=== PATIENT | male | born 1950 | race Caucasian/White ===

== ENCOUNTER 2020-07-29 06:23 | Day surgery (SDC) | payer OTHER, SELFPAY ==
[2020-07-25 09:45] LABS: BASOPHILS % (AUTO) 0.4 % (0.0-2.0); EOSINOPHILS # (AUTO) 0.3 K/uL (0.0-0.4); EOSINOPHILS % (AUTO) 3.6 % (0.0-4.0); HEMOGLOBIN 13.6 g/dL (14.0-18.0); LYMPHOCYTES # (AUTO) 1.8 K/uL (1.0-5.5); MEAN CORPUSCULAR HEMOGLOBIN 31 pg (27-31); MEAN CORPUSCULAR HGB CONC 34 % (32-36); MEAN CORPUSCULAR VOLUME 91 fL (79.0-98.0); MONOCYTES # (AUTO) 0.8 K/uL (0.0-1.0); MONOCYTES % (AUTO) 10.1 % (1.7-9.3); NEUTROPHILS # (AUTO) 5.3 K/uL (1.8-7.7); NEUTROPHILS % (AUTO) 63.9 % (40.0-70.0); PLATELET COUNT (AUTO) 249 K/uL (130-430); RED CELL DISTRIBUTION WIDTH 13.8 % (9.0-15.0); WHITE BLOOD COUNT (AUTO) 8.3 K/uL (4.8-10.8)
[2020-07-25 09:53] LABS: BILIRUBIN,URINE NEGATIVE (NEGATIVE); BLOOD, URINE NEGATIVE (NEGATIVE); CLARITY/URINE CLEAR (CLEAR); COLOR,URINE YELLOW (YELLOW); GLUCOSE,URINE NEGATIVE (NEGATIVE); KETONES,URINE NEGATIVE (NEGATIVE); LEUKOCYTE ESTERASE ,URINE NEGATIVE (NEGATIVE); NITRITE, URINE NEGATIVE (NEGATIVE); PH,URINE 5.5 (5.0-8.0); PROTEIN URINE NEGATIVE (NEGATIVE); UROBILINOGEN,URINE 0.2 (0.2-1.0)
[2020-07-25 10:00] LABS: ANION GAP 12 (5-15); CALCIUM 8.8 mg/dL (8.4-11.0); CHLORIDE 106 mmol/L (98-107); GLUCOSE 99 mg/dL (70-99); POTASSIUM 3.9 mmol/L (3.5-5.1); SODIUM SERUM 142 mmol/L (136-145); UREA NITROGEN, BLOOD 16 mg/dL (8-21)
[2020-07-25 10:04] LABS: INR 0.9 (0.80-1.20); PROTHROMBIN TIME 9.5 SECS (9.5-12.5)
[~2020-07-29] VITALS: Ht 182.9 cm; Wt 88.9 kg
[2020-07-29] MEDS ORDERED: DEXAMETHASONE SOD PHOSPHATE 4 MG/ML VIAL IVP ONE (09:09)
[2020-07-29] MEDS ORDERED: ePHEDrine sulfate 50 MG/ML VIAL IVP ONE (09:09)
[2020-07-29] MEDS ORDERED: NS IRRIG SOLN 5000 ML IR ONE (09:09)
[2020-07-29] MEDS ORDERED: ROCURONIUM BROMIDE 10 MG/ML (ZEMURON) IV ONE (09:09)
[2020-07-29] MEDS ORDERED: MORPHINE SULFATE 10 MG/ML VIAL IVP ONE (09:09)
[2020-07-29] MEDS ORDERED: CEFAZOLIN 2 GM IVPB PREMIX 50 ML IV ONE (09:09)
[2020-07-29] MEDS ORDERED: LR 1,000 ML IV.SOLN IV ONE (09:09)
[2020-07-29] MEDS ORDERED: ETOMIDATE 20 MG/ 10 ML VIAL (AMIDATE) IVP ONE (09:09)
[2020-07-29] MEDS ORDERED: ACETAMINOPHEN I.V. 1000 MG 100 ML IV ONE (10:59)
[2020-07-29] MEDS ORDERED: LR 1,000 ML IV SCH (11:45)
[2020-07-29] MEDS ORDERED: ONDANSETRON HCL 4 MG/2 ML VIAL IVP PRN (11:45)
[2020-07-29] MEDS ORDERED: HYDROmorphone 1 MG/ML INJ. CARTRIDGE ONE (11:59)
[2020-07-29] MEDS ORDERED: HYDROmorphone 1 MG/ML INJ. CARTRIDGE IV ONE (12:00)
[2020-07-29] MEDS ORDERED: hydrALAZINE HCL 20 MG/ML VIAL IV PRN (12:00)
[2020-07-29] MEDS ORDERED: HYDROcodone/ACETAMIN 5-325 MG TAB (NORCO/ VICODIN) ONE (12:54)
[2020-07-29] MEDS ORDERED: HYDROcodone/ACETAMIN 5-325 MG TAB (NORCO/ VICODIN) PO PRN (13:00)
[2020-07-29] MEDS ORDERED: ONDANSETRON HCL 4 MG/2 ML VIAL ONE (13:03)
[2020-07-29] MEDS ORDERED: METOCLOPRAMIDE HCL 10 MG/2 ML VIAL ONE (14:10)
[2020-07-29] MEDS ORDERED: METOCLOPRAMIDE HCL 10 MG/2 ML VIAL IVP ONE (14:15)
[2020-07-29 16:07] VITALS: BP_SYST 150
== END 2020-07-29 14:30 | disposition home or self-care (01) ==
LOC: SDS 06:23 → SMU 06:23 → SDS 14:30
PROVIDERS: ATTEND Orthopaedic Surgery
DX: M75.101 Unspecified rotator cuff tear or rupture of right shoulder, not specified as traumatic (principal); M66.821 Spontaneous rupture of other tendons, right upper arm; Z20.822 Contact with and (suspected) exposure to COVID-19; Z79.01 Long term (current) use of anticoagulants; Z79.899 Other long term (current) drug therapy
CPT/HCPCS: 23412; 29822; 36415; 71046; 80048; 81003; 85025; 85610; 85730; 93005; J0131; J0690; J1100; J1170; J2270; J2405; J2765; J3490; J7120; L3650; U0003

== ENCOUNTER 2021-07-21 07:12 | Day surgery (SDC) | payer OTHER ==
[2021-07-20 08:41] LABS: BILIRUBIN,URINE NEGATIVE (NEGATIVE); CLARITY/URINE CLEAR (CLEAR); COLOR,URINE YELLOW (YELLOW); GLUCOSE,URINE NEGATIVE (NEGATIVE); KETONES,URINE NEGATIVE (NEGATIVE); LEUKOCYTE ESTERASE ,URINE NEGATIVE (NEGATIVE); NITRITE, URINE NEGATIVE (NEGATIVE); PROTEIN URINE NEGATIVE (NEGATIVE); UROBILINOGEN,URINE 0.2 (0.2-1.0)
[2021-07-20 08:47] LABS: BLOOD, URINE TRACE (NEGATIVE)
[2021-07-20 09:11] LABS: BASOPHILS % (AUTO) 0.3 % (0.0-2.0); EOSINOPHILS # (AUTO) 0.2 K/uL (0.0-0.4); HEMATOCRIT 42.7 % (36-54); HEMOGLOBIN 14.5 g/dL (14.0-18.0); LYMPHOCYTES # (AUTO) 1.8 K/uL (1.0-5.5); LYMPHOCYTES % (AUTO) 26.6 % (20.5-51.5); MEAN CORPUSCULAR HEMOGLOBIN 30 pg (27-31); MEAN CORPUSCULAR HGB CONC 34 % (32-36); MEAN CORPUSCULAR VOLUME 87 fL (79.0-98.0); MONOCYTES # (AUTO) 0.7 K/uL (0.0-1.0); MONOCYTES % (AUTO) 9.8 % (1.7-9.3); NEUTROPHILS # (AUTO) 4.2 K/uL (1.8-7.7); NEUTROPHILS % (AUTO) 60.3 % (40.0-70.0); PLATELET COUNT (AUTO) 196 K/uL (130-430); RED CELL DISTRIBUTION WIDTH 13.9 % (9.0-15.0); WHITE BLOOD COUNT (AUTO) 6.9 K/uL (4.8-10.8)
[2021-07-20 09:25] LABS: INR 0.9 (0.80-1.20); PROTHROMBIN TIME 9.7 SECS (9.5-12.5)
[2021-07-20 09:49] LABS: ANION GAP 8 (5-15); CALCIUM 8.5 mg/dL (8.4-11.0); CHLORIDE 104 mmol/L (98-107); GLUCOSE 103 mg/dL (70-99); POTASSIUM 3.9 mmol/L (3.5-5.1); SODIUM SERUM 139 mmol/L (136-145); UREA NITROGEN, BLOOD 17 mg/dL (8-21)
[2021-07-20 10:56] LABS: BACTERIA,URINE FEW /HPF (None Seen); WBC,URINE 0-3 /HPF (0-3)
[~2021-07-21] VITALS: Ht 208.3 cm; Wt 89.4 kg
[2021-07-21] MEDS ORDERED: LR 1,000 ML IV.SOLN IV ONE (10:21)
[2021-07-21] MEDS ORDERED: KETOROLAC TROMETHAMINE 30 MG VIAL IVP ONE (10:21)
[2021-07-21] MEDS ORDERED: SUGAMMADEX SODIUM 200 MG/2 ML VIAL IV ONE (10:21)
[2021-07-21] MEDS ORDERED: DESFLURANE 15 MIN GAS INH ONE (10:21)
[2021-07-21] MEDS ORDERED: BUPIVACAINE /PF 0.25% 10 ML VIAL INJ ONE (10:21)
[2021-07-21] MEDS ORDERED: LIDOCAINE 2%, 20 ML MDV INJ ONE (10:21)
[2021-07-21] MEDS ORDERED: ROCURONIUM BROMIDE 10 MG/ML (ZEMURON) IV ONE (10:21)
[2021-07-21] MEDS ORDERED: CEFAZOLIN 2 GM IVPB PREMIX 50 ML IV ONE (10:21)
[2021-07-21] MEDS ORDERED: MIDAZOLAM HCL 5 MG/5 ML VIAL IVP ONE (10:21)
[2021-07-21] MEDS ORDERED: DEXAMETHASONE SOD PHOSPHATE 4 MG/ML VIAL IVP ONE (10:21)
[2021-07-21] MEDS ORDERED: PROPOFOL 200MG/ 20ML VIAL (DIPRIVAN) IV ONE (10:21)
[2021-07-21] MEDS ORDERED: ONDANSETRON HCL 4 MG/2 ML VIAL IVP ONE (10:21)
[2021-07-21] MEDS ORDERED: WATER FOR IRRIGATION,STERILE 1,000 ML IRRIG.SOLN IR ONE (10:21)
[2021-07-21] MEDS ORDERED: fentaNYL CITRATE 250 MCG/5 ML AMP IV ONE (10:21)
[2021-07-21] MEDS ORDERED: METOCLOPRAMIDE HCL 10 MG/2 ML VIAL IVP PRN (10:45)
[2021-07-21] MEDS ORDERED: MIDAZOLAM HCL 2 MG/2 ML VIAL (VERSED) IVP PRN (10:45)
[2021-07-21] MEDS ORDERED: hydrALAZINE HCL 20 MG/ML VIAL IVP PRN (10:45)
[2021-07-21] MEDS ORDERED: HYDROmorphone 1 MG/ML INJ. CARTRIDGE IVP PRN ×2 (10:45)
[2021-07-21] MEDS ORDERED: LABETALOL 100 MG/ 20ML VIAL IVP PRN (10:45)
[2021-07-21] MEDS ORDERED: LR 1,000 ML IV SCH (10:45)
[2021-07-21] MEDS ORDERED: MEPERIDINE HCL/PF 25 MG/ML DISP.SYRIN IVP PRN (10:45)
[2021-07-21] MEDS ORDERED: ACETAMINOPHEN I.V. 1000 MG 100 ML IV ONE (11:29)
[2021-07-21 13:20] VITALS: BP_SYST 142
== END 2021-07-21 14:35 | disposition home or self-care (01) ==
LOC: SDS 07:12 → SMU 07:13 → SDS 14:35
PROVIDERS: ATTEND Orthopaedic Surgery
DX: M12.811 Other specific arthropathies, not elsewhere classified, right shoulder (principal); M75.21 Bicipital tendinitis, right shoulder; M25.511 Pain in right shoulder; R94.31 Abnormal electrocardiogram [ECG] [EKG]; Z79.01 Long term (current) use of anticoagulants; Z20.822 Contact with and (suspected) exposure to COVID-19
CPT/HCPCS: 23120; 23130; 36415; 64415; 71046; 76942; 80048; 81000; 85025; 85610; 85730; 87081; 88304; 88311; 93005; J0131; J0690; J1100; J1885; J2001; J2250; J2405; J2704; J3010; J3490 ×2; J7120; U0003

== ENCOUNTER 2021-10-06 06:43 | Day surgery (SDC) | payer OTHER ==
[2021-10-04 09:21] LABS: BASOPHILS # (AUTO) 0.1 K/uL (0.0-0.2); BASOPHILS % (AUTO) 0.6 % (0.0-2.0); EOSINOPHILS # (AUTO) 0.1 K/uL (0.0-0.4); EOSINOPHILS % (AUTO) 1.1 % (0.0-4.0); HEMATOCRIT 41.2 % (36-54); HEMOGLOBIN 14.1 g/dL (14.0-18.0); LYMPHOCYTES # (AUTO) 2.5 K/uL (1.0-5.5); LYMPHOCYTES % (AUTO) 19.7 % (20.5-51.5); MEAN CORPUSCULAR HEMOGLOBIN 30 pg (27-31); MEAN CORPUSCULAR HGB CONC 34 % (32-36); MEAN CORPUSCULAR VOLUME 87 fL (79.0-98.0); MONOCYTES # (AUTO) 1.2 K/uL (0.0-1.0); MONOCYTES % (AUTO) 9.6 % (1.7-9.3); NEUTROPHILS # (AUTO) 8.7 K/uL (1.8-7.7); PLATELET COUNT (AUTO) 404 K/uL (130-430); RED BLOOD CELL COUNT(AUTO) 4.71 MIL/uL (4.2-6.2); RED CELL DISTRIBUTION WIDTH 13.8 % (9.0-15.0); WHITE BLOOD COUNT (AUTO) 12.7 K/uL (4.8-10.8)
[2021-10-04 09:25] LABS: BILIRUBIN,URINE NEGATIVE (NEGATIVE); CLARITY/URINE CLEAR (CLEAR); COLOR,URINE YELLOW (YELLOW); GLUCOSE,URINE NEGATIVE (NEGATIVE); KETONES,URINE NEGATIVE (NEGATIVE); LEUKOCYTE ESTERASE ,URINE NEGATIVE (NEGATIVE); NITRITE, URINE NEGATIVE (NEGATIVE); PROTEIN URINE NEGATIVE (NEGATIVE); UROBILINOGEN,URINE 0.2 (0.2-1.0)
[2021-10-04 09:37] LABS: INR 0.9 (0.80-1.20); PROTHROMBIN TIME 9.8 SECS (9.5-12.5)
[2021-10-04 09:39] LABS: ALANINE AMINOTRANSFERASE 43 U/L (12-78); ALBUMIN 3.6 g/dL (3.4-4.8); ANION GAP 7 (5-15); ASPARTATE AMINOTRANSFERASE 19 U/L (10-37); CALCIUM 9.4 mg/dL (8.4-11.0); CHLORIDE 100 mmol/L (98-107); CREATININE 0.88 mg/dL (0.55-1.30); GLUCOSE 104 mg/dL (70-99); POTASSIUM 4.8 mmol/L (3.5-5.1); SODIUM SERUM 137 mmol/L (136-145); TOTAL BILIRUBIN 0.5 mg/dL (0.0-1.0); UREA NITROGEN, BLOOD 16 mg/dL (8-21)
[2021-10-04 09:44] LABS: BLOOD, URINE TRACE (NEGATIVE)
[2021-10-04 09:46] LABS: BACTERIA,URINE RARE /HPF (None Seen); MUCUS,URINE 1+ /LPF (None Seen); WBC,URINE 0-3 /HPF (0-3)
[~2021-10-06] VITALS: Ht 152.4 cm; Wt 52.6 kg
[2021-10-06] MEDS ORDERED: SEVOFLURANE 15 MIN GAS INH ONE (09:30)
[2021-10-06] MEDS ORDERED: PROPOFOL 200MG/ 20ML VIAL (DIPRIVAN) IV ONE (09:30)
[2021-10-06] MEDS ORDERED: CEFAZOLIN 2 GM IVPB PREMIX 50 ML IV ONE (09:30)
[2021-10-06] MEDS ORDERED: ONDANSETRON HCL 4 MG/2 ML VIAL ONE (09:30)
[2021-10-06] MEDS ORDERED: LR 1,000 ML IV.SOLN IV ONE (09:30)
[2021-10-06] MEDS ORDERED: KETOROLAC TROMETHAMINE 30 MG VIAL ONE (09:30)
[2021-10-06] MEDS ORDERED: MORPHINE 4 MG INJ. 4 MG/ML VIAL IVP PRN (10:15)
[2021-10-06] MEDS ORDERED: IBUPROFEN 600 MG TABLET PO ONE (10:15)
[2021-10-06] MEDS ORDERED: HYDROmorphone 1 MG/ML INJ. CARTRIDGE IVP PRN (10:15)
[2021-10-06] MEDS ORDERED: KETOROLAC TROMETHAMINE 30 MG VIAL IVP PRN (10:15)
[2021-10-06] MEDS ORDERED: ONDANSETRON HCL 4 MG/2 ML VIAL IVP PRN (10:15)
[2021-10-06] MEDS ORDERED: HYDROcodone/ACETAMIN 5-325 MG TAB (NORCO/ VICODIN) PO PRN (12:00)
[2021-10-06 12:42] VITALS: BP_SYST 137
== END 2021-10-06 12:35 | disposition home or self-care (01) ==
LOC: SMU 06:43 → SDS 06:43
PROVIDERS: ATTEND Orthopaedic Surgery
DX: L76.34 Postprocedural seroma of skin and subcutaneous tissue following other procedure (principal); I10 Essential (primary) hypertension; E78.5 Hyperlipidemia, unspecified; Z79.899 Other long term (current) drug therapy; Z20.822 Contact with and (suspected) exposure to COVID-19; Z79.01 Long term (current) use of anticoagulants
CPT/HCPCS: 80053; 81000; 85025; 85610; 85730; 36415 ×2; 93005; 71046; 10140; 87070; 87426; U0003; J0690; J1885; J2405; J2704; J7120

== ENCOUNTER 2021-10-12 09:47 | Inpatient (IN) | payer OTHER ==
[~2021-10-12] VITALS: Ht 182.9 cm; Wt 84.4 kg
[2021-10-12 10:20] VITALS: BP_SYST 122
[2021-10-12 10:42] VITALS: BP_SYST 122
[2021-10-12] MEDS ORDERED: LIP10 PO (10:54)
--- NOTE | 2021-10-12 11:00 | NUR ---
Admission Note Received patient from HOME VIA DIRECT ADMIT with diagnosis of RIGHT SHOULDER INFECTION. Initial Plan of Care discussed-patient verbalized understanding. Oriented to room, call light, pain management and safety. IV LINE ESTABLISHED. WILL CALL ADMITTING DOCTOR FOR ORDERS. PT IS STABLE, NO ACUTE DISTRESS, RIGHT SHOULDER PAIN WITH REDNESS, SWELLING, CASANDRA NOTED, BUT NO DRAINAGE. ASSUMING CARE FOR PT.
--- NOTE | 2021-10-12 11:35 | NUR ---
CALLED AND INFORMED DR MAJO THEODORE THAT PT IS ALREADY HERE. INFORMED AZAR BROWER.
--- NOTE | 2021-10-12 12:30 | NUR ---
DR. FORD HERE TO SEE THE PATIENT. PER PT WILL HAVE I/D TONIGHT.
[2021-10-12 13:00] VITALS: BP_SYST 145
[2021-10-12] MEDS ORDERED: ONDANSETRON HCL 4 MG/2 ML VIAL IVP PRN ×2 (13:15→17:30)
[2021-10-12] MEDS ORDERED: NALOXONE HCL 0.4 MG/ML AMP (NARCAN) IVP PRN ×3 (13:15→19:15)
[2021-10-12] MEDS ORDERED: HYDROmorphone 1 MG/ML INJ. CARTRIDGE IVP PRN ×3 (13:15→17:30)
[2021-10-12] MEDS: LR 1,000 ML IV SCH (13:15)
[2021-10-12 13:56] LABS: BASOPHILS # (AUTO) 0.1 K/uL (0.0-0.2); BASOPHILS % (AUTO) 0.5 % (0.0-2.0); EOSINOPHILS # (AUTO) 0.2 K/uL (0.0-0.4); EOSINOPHILS % (AUTO) 1.4 % (0.0-4.0); HEMATOCRIT 35.9 % (36-54); LYMPHOCYTES # (AUTO) 2.1 K/uL (1.0-5.5); MEAN CORPUSCULAR HEMOGLOBIN 29 pg (27-31); MEAN CORPUSCULAR HGB CONC 33 % (32-36); MEAN CORPUSCULAR VOLUME 87 fL (79.0-98.0); MONOCYTES # (AUTO) 0.9 K/uL (0.0-1.0); MONOCYTES % (AUTO) 8.5 % (1.7-9.3); NEUTROPHILS # (AUTO) 7.8 K/uL (1.8-7.7); NEUTROPHILS % (AUTO) 70.6 % (40.0-70.0); PLATELET COUNT (AUTO) 326 K/uL (130-430); RED CELL DISTRIBUTION WIDTH 13.8 % (9.0-15.0)
[2021-10-12 14:14] LABS: ANION GAP 7 (5-15); C-REACTIVE PROTEIN QUANT 7.2 mg/dL (0-0.5); CALCIUM 9.1 mg/dL (8.4-11.0); CHLORIDE 102 mmol/L (98-107); CREATININE 0.74 mg/dL (0.55-1.30); GLUCOSE 96 mg/dL (70-99); POTASSIUM 4.3 mmol/L (3.5-5.1); UREA NITROGEN, BLOOD 16 mg/dL (8-21)
[2021-10-12 15:30] VITALS: BP_SYST 145
--- NOTE | 2021-10-12 15:30 | NUR ---
PT OFF THE UNIT FOR I/D. PT STABLE AND PRE OP CHECKLIST DONE.
[2021-10-12 16:27] LABS: ERYTHROCYTE SEDIMENTATION RATE 75 MM/HR (0-15)
[2021-10-12] MEDS ORDERED: LR 1,000 ML IV SCH (17:30)
[2021-10-12] MEDS ORDERED: HYDROmorphone 2 MG/ML VIAL IVP PRN ×2 (17:30→19:15)
[2021-10-12] MEDS ORDERED: SEVOFLURANE 15 MIN GAS INH ONE (18:10)
[2021-10-12] MEDS ORDERED: ONDANSETRON HCL 4 MG/2 ML VIAL ONE ×2 (18:10→18:17)
[2021-10-12] MEDS ORDERED: NS IRRIG SOLN 1000 ML IR ONE (18:10)
[2021-10-12] MEDS ORDERED: GLYCOPYRROLATE 0.2 MG/ML VIAL ONE (18:10)
[2021-10-12] MEDS ORDERED: LR 1,000 ML IV.SOLN IV ONE (18:10)
[2021-10-12] MEDS ORDERED: CEFAZOLIN 2 GM IVPB PREMIX 50 ML IV ONE (18:10)
[2021-10-12] MEDS ORDERED: METOCLOPRAMIDE HCL 10 MG/2 ML VIAL ONE (18:10)
[2021-10-12] MEDS ORDERED: BUPIVACAINE /PF 0.25% 30 ML VIAL INJ ONE (18:10)
[2021-10-12] MEDS ORDERED: PROPOFOL 200MG/ 20ML VIAL (DIPRIVAN) IV ONE (18:10)
[2021-10-12] MEDS ORDERED: LIDOCAINE/EPI 1% 1:100000 20 ML VIAL ONE (18:10)
[2021-10-12] MEDS ORDERED: PHENYLEPHRINE HCL 10 MG/ML VIAL (NEOSYNEPHRINE) ONE (18:10)
[2021-10-12] MEDS ORDERED: fentaNYL CITRATE/PF 100 MCG/2 ML AMP ONE (18:10)
--- NOTE | 2021-10-12 18:45 | NUR ---
RECEIVED PT VIA BED. PT STABLE, INITIATED POST OP FREQUENT VS. WILL CLOSELY MONITOR PT.
[2021-10-12] MEDS ORDERED: HYDROcodone/ACETAMIN 5-325 MG TAB (NORCO/ VICODIN) PO PRN ×2 (19:15)
[2021-10-12] MEDS ORDERED: ONDANSETRON 4 MG ODT TAB PO PRN (19:15)
--- NOTE | 2021-10-12 19:30 | NUR ---
REPORT GIVEN TO AMADOU ASKEW. INFORMED FREQUENT VS NEEDS TO BE CONTINUED.
[2021-10-12 20:00] VITALS: BP_SYST 134
--- NOTE | 2021-10-12 20:00 | NUR ---
Received pt from outgoing nurse,fully alert oriented x 4. has IVF LR@ 75 ml/h he denies pain but offered snacks and oral drinks as requested. vitals done are within normal range
[2021-10-12] MEDS: CEFAZOLIN 1 GM IVPB PREMIX 50 ML IV SCH (21:05)
[2021-10-12] MEDS: DOCUSATE SODIUM 100 MG CAPSULE PO SCH (21:05)
[2021-10-12 21:24] VITALS: BP_SYST 155
--- NOTE | 2021-10-13 | NUR ---
vitals done are within normal limit
[2021-10-13 00:10] VITALS: BP_SYST 128
--- NOTE | 2021-10-13 01:10 | NUR ---
pt sleeping quietly.IVF in progress
[2021-10-13] MEDS: LR 1,000 ML IV SCH ×2 (02:35→15:55)
--- NOTE | 2021-10-13 04:00 | NUR ---
pt denies pain, not in distress, resting in bed
[2021-10-13 06:00] VITALS: BP_SYST 128
[2021-10-13] MEDS: CEFAZOLIN 1 GM IVPB PREMIX 50 ML IV SCH (06:16)
--- NOTE | 2021-10-13 07:07 | NUR ---
CONSULTATION PAGED/CALLED Reason for Consultation: [] R SHOULDER ABSCESS Person Who was Notified: [] ANTHONY Consulting Physician: [] DR LUNDBERG V Belt Inspector Specialty: [] ID Ordering Physician: [] DR Albaro FORD
[2021-10-13 08:18] VITALS: BP_SYST 140
[2021-10-13] MEDS: DOCUSATE SODIUM 100 MG CAPSULE PO SCH ×2 (08:46→20:14)
[2021-10-13] MEDS: ENOXAPARIN SODIUM 40 MG/0.4 ML SYRINGE SUBCUT SCH (08:46)
[2021-10-13] MEDS: VANCOMYCIN HCL 1,000 MG in NS 250 ML IV SCH ×2 (11:12→22:56)
[2021-10-13 11:35] VITALS: BP_SYST 129
[2021-10-13] MEDS: CLINDAMYCIN 600 MG in D5W 50 ML IV SCH ×2 (13:39→17:19)
--- NOTE | 2021-10-13 15:15 | NUR ---
0730 Pt. in bed, aaox4, no distress. Dressing to right shoulder noted, denies pain 1200 Pt. spoke with Infectious Disease doctor on phone, started on antibiotics ivpb 1300 Dr. Johnson at bedside, pt. to have repeat I&D tomorrow.
[2021-10-13 15:20] VITALS: BP_SYST 135
--- NOTE | 2021-10-13 18:48 | NUR ---
1830 Pt. needs met this shift, vss, afebrile, consent signed for repeat drainage and irrigation of right shoulder tomorrow, npo after midnight. Call light in reach, report given to noc shift.
[2021-10-13] MEDS: LACTOBACILLUS RHAMNOSUS GG 1 CAP CAPSULE PO SCH (20:14)
[2021-10-13 20:15] VITALS: BP_SYST 142
--- NOTE | 2021-10-13 20:23 | NUR ---
RECEIVED PT LYING IN BED, NO DISTRESS NOTED, C/O RT SHOULDER PAIN RATING IT 6/10 MEDICATED WITH NORCO 1 TAB. DRSG TO RT SHOULDER SMALL AMOUNT OF DRAINAGE NOTED. RUE WITH +WARMTH, +SENSATION, +MOBILITY, BRISK CAP REFILL, PALPABLE PULSE. ENCOURAGED TO US INCENTIVE SPIROMETER 1000ML. IV TO LT WRIST SITE CDI. Addendum: 10/13/21 at 2202 by [employer] AZAR Gleason RN 2199: REPORT GIVEN TO SASHA ASKEW
[2021-10-14] VITALS (7 sets, daily range): BP systolic 130–144
[2021-10-14] MEDS: CLINDAMYCIN 600 MG in D5W 50 ML IV SCH ×4 (00:07→17:02)
--- NOTE | 2021-10-14 07:18 | NUR ---
Report received from shift supervisor rn RN for continuity of care. Patient in stable condition. No distress noted.
[2021-10-14] MEDS: ENOXAPARIN SODIUM 40 MG/0.4 ML SYRINGE SUBCUT SCH (08:38)
[2021-10-14] MEDS: LACTOBACILLUS RHAMNOSUS GG 1 CAP CAPSULE PO SCH (08:38)
[2021-10-14] MEDS: DOCUSATE SODIUM 100 MG CAPSULE PO SCH (08:38)
--- NOTE | 2021-10-14 08:57 | NUR ---
Dietitian Recommendations: - NPO per MD order, resume a regular diet when appropriate - suggest daily multivitamin w/ minerals - when diet resumes, consider addition of Ensure Enlive BID, sip between meals - monitor weight trend Please refer to nutrition assessment for details. PS, RD
--- NOTE | 2021-10-14 11:16 | NUR ---
Dr. Noland notified regarding patient surgical delay. Dr. Noland spoke with patient on phone regarding situation.
[2021-10-14] MEDS ORDERED: ONDANSETRON HCL 4 MG/2 ML VIAL IVP PRN (11:30)
[2021-10-14] MEDS ORDERED: ATORVASTATIN 10 MG TABLET PO ONE (11:30)
[2021-10-14] MEDS: VANCOMYCIN HCL 1,000 MG in NS 250 ML IV SCH (11:32)
[2021-10-14] MEDS: LR 1,000 ML IV SCH (11:34)
--- NOTE | 2021-10-14 13:34 | NUR ---
OR called to take patient to preop soon.
[2021-10-14] MEDS ORDERED: LIDOCAINE/EPI 1% 1:100000 20 ML VIAL ONE (13:35)
[2021-10-14] MEDS ORDERED: PROPOFOL 200MG/ 20ML VIAL (DIPRIVAN) IV ONE (13:35)
[2021-10-14] MEDS ORDERED: BUPIVACAINE /PF 0.25% 10 ML VIAL INJ ONE (13:35)
[2021-10-14] MEDS ORDERED: SEVOFLURANE 15 MIN GAS INH ONE (13:35)
[2021-10-14] MEDS ORDERED: LR 1,000 ML IV.SOLN IV ONE (13:35)
[2021-10-14] MEDS ORDERED: NS IRRIG SOLN 1000 ML IR ONE (13:35)
[2021-10-14] MEDS ORDERED: MIDAZOLAM HCL 5 MG/5 ML VIAL ONE (13:35)
--- NOTE | 2021-10-14 15:13 | NUR ---
Patient coming back from OR.
--- NOTE | 2021-10-14 15:27 | NUR ---
Report received from AZAR Cosby for continuity of care. Patient vital signs stable. No distress noted. Patient is awake, alert, and oriented x4. Respiration even and unlabored. No c/o pain. Patient aware of procedure that was performed. Will continue to monitor. Call light within reach.
[2021-10-14] MEDS ORDERED: HYDR-3917 PO (17:11)
[2021-10-14] MEDS ORDERED: DOXY-244 PO (17:13)
--- NOTE | 2021-10-14 18:45 | NUR ---
Patient ready for discharge. All paperwork provided. Educated on medications and aftercare. No distress noted. Patient took all of his belongings. Ambulatory with steady gait to wheelchair. IV removed and area is clean, dry, and intact. Took patient via wheelchair to front of lobby where he was picked up by his son.
[2021-10-15] MEDS ORDERED: ATORVASTATIN 10 MG TABLET PO SCH (09:00)
--- NOTE | 2021-11-01 16:29 | NUR ---
Microarray Analyst ANGLE DOZER OPERATOR made a Post Discharge Follow Up Phone Call and spoke to former pt. Bryant who said he is making progress, saw Dr. Johnson 2 times, did have an infection, but the meds have cleared it up and stitches were removed today. Bryant did not have any questions or concerns. ANGLE DOZER OPERATOR thanked him for the update.
== END 2021-10-14 20:17 | disposition home or self-care (01) | DRG 603 ==
LOC: SMU 09:47
PROVIDERS: ADMIT Orthopaedic Surgery; ATTEND Orthopaedic Surgery
PROC: 0R9J3ZZ Drainage of Right Shoulder Joint, Percutaneous Approach (ICD-10-PCS; principal; 2021-10-12 17:01)
PROC: 0R9J3ZZ Drainage of Right Shoulder Joint, Percutaneous Approach (ICD-10-PCS; 2021-10-14)
DX: L02.413 Cutaneous abscess of right upper limb (principal); R65.10 Systemic inflammatory response syndrome (SIRS) of non-infectious origin without acute organ dysfunction; Z20.822 Contact with and (suspected) exposure to COVID-19
CPT/HCPCS: 36415; 80048; 85025; 85651-TC; 86140; 87070-TC; 87075-TC; 87081; 88305; J0690; J1170; J1650; J2250; J2370; J2405; J2704; J2765; J3010; J3370; J3490; J7050; J7060; J7120

== ENCOUNTER 2023-10-03 07:53 | Outpatient (CLI) | payer OTHER ==
[~2023-10-03 07:53] MED LIST: ATOR-449 PO; DOXY-244 PO; HYDR-3917 PO
== END 2023-10-03 18:06 | disposition home or self-care (01) ==
LOC: SCT 07:53
PROVIDERS: ATTEND Student in an Organized Health Care Education/Training Program
DX: M17.11 Unilateral primary osteoarthritis, right knee (principal)

== ENCOUNTER 2023-10-16 05:00 | Day surgery (SDC) | payer OTHER ==
[2023-10-08 10:51] LABS: BASOPHILS % (AUTO) 0.2 % (0.0-2.0); EOSINOPHILS # (AUTO) 0.5 K/uL (0.0-0.4); EOSINOPHILS % (AUTO) 5.9 % (0.0-4.0); HEMATOCRIT 39.6 % (36-54); HEMOGLOBIN 13.2 g/dL (14.0-18.0); LYMPHOCYTES # (AUTO) 2.2 K/uL (1.0-5.5); LYMPHOCYTES % (AUTO) 23.7 % (20.5-51.5); MEAN CORPUSCULAR HEMOGLOBIN 30 pg (27-31); MEAN CORPUSCULAR HGB CONC 33 % (32-36); MEAN CORPUSCULAR VOLUME 89 fL (79.0-98.0); MONOCYTES # (AUTO) 0.8 K/uL (0.0-1.0); MONOCYTES % (AUTO) 8.5 % (1.7-9.3); NEUTROPHILS # (AUTO) 5.7 K/uL (1.8-7.7); NEUTROPHILS % (AUTO) 61.7 % (40.0-70.0); PLATELET COUNT (AUTO) 198 K/uL (130-430); RED BLOOD CELL COUNT(AUTO) 4.43 MIL/uL (4.2-6.2); RED CELL DISTRIBUTION WIDTH 14.3 % (9.0-15.0); WHITE BLOOD COUNT (AUTO) 9.3 K/uL (4.8-10.8)
[2023-10-08 10:52] LABS: INR 0.9 (0.80-1.20); PROTHROMBIN TIME 9.9 SECS (9.5-12.5)
[2023-10-08 10:53] LABS: ALANINE AMINOTRANSFERASE 27 U/L (12-78); ALBUMIN 3.7 g/dL (3.4-4.8); ANION GAP 6 (5-15); ASPARTATE AMINOTRANSFERASE 21 U/L (10-37); CARBON DIOXIDE 30 mmol/L (23-29); CHLORIDE 105 mmol/L (98-107); CREATININE 0.88 mg/dL (0.55-1.30); GLUCOSE 100 mg/dL (74-106); POTASSIUM 4.3 mmol/L (3.5-5.1); SODIUM SERUM 141 mmol/L (136-145); TOTAL BILIRUBIN 0.7 mg/dL (0.0-1.0); TOTAL PROTEIN, SERUM 6.9 g/dL (6.4-8.3); UREA NITROGEN, BLOOD 15 mg/dL (8-21)
[~2023-10-16] VITALS: Ht 182.9 cm; Wt 92.7 kg
[2023-10-16] MEDS ORDERED: ACETAMINOPHEN 500 MG TABLET ONE (05:31)
[2023-10-16] MEDS ORDERED: CELECOXIB 100 MG CAPSULE ONE (05:31)
[2023-10-16] MEDS ORDERED: GABAPENTIN 300 MG CAPSULE ONE (05:34)
[2023-10-16] MEDS ORDERED: oxyCODONE HCL 10 MG TAB.ER.12H PO ONE (05:34)
[2023-10-16] MEDS ORDERED: SCOPOLAMINE HYDROBROMIDE 1 MG PATCH .72 H (TRANSDERM-SCOP) TD ONE (05:34)
[2023-10-16] MEDS: SCOPOLAMINE HYDROBROMIDE 1 MG PATCH .72 H (TRANSDERM-SCOP) TD ONE (05:59)
[2023-10-16] MEDS: CELECOXIB 100 MG CAPSULE PO ONE (05:59)
[2023-10-16] MEDS: GABAPENTIN 300 MG CAPSULE PO ONE (05:59)
[2023-10-16] MEDS: ACETAMINOPHEN 500 MG TABLET PO ONE (05:59)
[2023-10-16] MEDS: oxyCODONE HCL 10 MG TAB.ER.12H PO ONE (06:50)
[2023-10-16] MEDS ORDERED: ePHEDrine sulfate 50 MG/ML VIAL ONE (06:59)
[2023-10-16] MEDS ORDERED: LR 1,000 ML IV.SOLN IV ONE ×2 (06:59)
[2023-10-16] MEDS ORDERED: TRANEXAMIC ACID 1,000 MG/10 ML VIAL ONE (06:59)
[2023-10-16] MEDS ORDERED: METOCLOPRAMIDE HCL 10 MG/2 ML VIAL ONE (06:59)
[2023-10-16] MEDS ORDERED: BUPIVACAINE /PF 0.25% 10 ML VIAL INJ ONE (06:59)
[2023-10-16] MEDS ORDERED: fentaNYL CITRATE/PF 100 MCG/2 ML AMP ONE (06:59)
[2023-10-16] MEDS ORDERED: NS IRRIG SOLN 1000 ML IR ONE (06:59)
[2023-10-16] MEDS ORDERED: SEVOFLURANE 15 MIN GAS INH ONE (06:59)
[2023-10-16] MEDS ORDERED: ceFAZolin SODIUM 1 GM VIAL ONE (06:59)
[2023-10-16] MEDS ORDERED: VANCOMYCIN HCL 1000 MG/VIAL IV ONE (06:59)
[2023-10-16] MEDS ORDERED: DEXAMETHASONE SOD PHOSPHATE 4 MG/ML VIAL ONE (06:59)
[2023-10-16] MEDS ORDERED: MIDAZOLAM HCL 2 MG/2 ML VIAL (VERSED) ONE (06:59)
[2023-10-16] MEDS ORDERED: CEFAZOLIN SOD 2 GM in D5W 50 ML IV ONE (07:00)
[2023-10-16] MEDS ORDERED: ONDANSETRON HCL 4 MG/2 ML VIAL IVP PRN ×2 (08:15→11:45)
[2023-10-16] MEDS ORDERED: hydrALAZINE HCL 20 MG/ML VIAL IVP PRN (08:15)
[2023-10-16] MEDS ORDERED: HYDROmorphone 1 MG/ML INJ. CARTRIDGE IVP PRN ×4 (08:15→11:00)
[2023-10-16] MEDS ORDERED: NALOXONE HCL 0.4 MG/ML AMP (NARCAN) IVP PRN (08:15)
[2023-10-16] MEDS ORDERED: MEPERIDINE HCL/PF 25 MG/ML DISP.SYRIN IVP PRN (08:15)
[2023-10-16] MEDS ORDERED: LR 1,000 ML IV SCH (08:15)
[2023-10-16] MEDS ORDERED: KETOROLAC TROMETHAMINE 30 MG VIAL IVP PRN (08:15)
[2023-10-16] MEDS ORDERED: LACTULOSE 20 GM/30 ML UDC PO PRN (09:00)
[2023-10-16] MEDS ORDERED: BISACODYL 10 MG/SUPPOSITORY RC PRN (09:00)
[2023-10-16] MEDS ORDERED: METOCLOPRAMIDE HCL 10 MG/2 ML VIAL IVP PRN (09:00)
[2023-10-16] MEDS ORDERED: DIPHENHYDRAMINE HCL 25 MG CAPSULE PO PRN (09:00)
[2023-10-16] MEDS: HYDROmorphone 1 MG/ML INJ. CARTRIDGE IVP PRN (09:51)
[2023-10-16] MEDS ORDERED: HYDROmorphone 1 MG/ML INJ. CARTRIDGE ONE (09:51)
[2023-10-16 09:54] VITALS: BP_SYST 159; PULSE 60; RESP 18; TEMP 97.3; O2SAT 99
[2023-10-16] MEDS: TAMSULOSIN HCL 0.4 MG CAP PO SCH (10:16)
[2023-10-16] MEDS ORDERED: oxyCODONE HCL 5 MG TABLET PO PRN ×2 (11:00)
[2023-10-16] MEDS ORDERED: LORATADINE 10 MG TABLET PO PRN (11:00)
[2023-10-16] MEDS ORDERED: traMADol HCL HCL 50 MG TABLET (ULTRAM) PO PRN (11:00)
[2023-10-16] MEDS ORDERED: ceFAZolin SODIUM 2 GM in D5W 50 ML IV SCH (11:15)
[2023-10-16] MEDS ORDERED: ACETAMINOPHEN 500 MG TABLET PO SCH (14:00)
[2023-10-16] MEDS ORDERED: KETOROLAC TROMETHAMINE 10 MG TABLET (TORADOL) PO SCH (14:00)
[2023-10-16] MEDS ORDERED: SENNOSIDES/DOCUSATE SODIUM 1 TAB TABLET(SENOKOT-S) PO SCH (21:00)
[2023-10-17] MEDS ORDERED: ASPIRIN 81 MG TAB.CHEW PO SCH (09:00)
[2023-10-17] MEDS ORDERED: CELECOXIB 200 MG CAPSULE PO SCH (11:00)
== END 2023-10-16 14:50 | disposition home or self-care (01) ==
LOC: SDS 05:00 → SMU 05:00 → SDS 14:50
PROVIDERS: ATTEND Student in an Organized Health Care Education/Training Program
DX: M17.11 Unilateral primary osteoarthritis, right knee (principal); M25.761 Osteophyte, right knee; M25.561 Pain in right knee; I10 Essential (primary) hypertension; E66.3 Overweight; G89.18 Other acute postprocedural pain; Z68.27 Body mass index [BMI] 27.0-27.9, adult; Z98.890 Other specified postprocedural states; Z79.899 Other long term (current) drug therapy; Z80.0 Family history of malignant neoplasm of digestive organs
CPT/HCPCS: 80053; 85025; 85610; 85730; 87081; 36415; 71046; 27447; 97162; 64447; 73560; 97110; 97530; 97116; 88305; 88311; J3490 ×2; J0690; J0696; J1100; J2765; J3465; J3370; J3010; J1170; J7060 ×2; J7120; C1713 ×3; C1776 ×2